=== PATIENT | male | born 1945 | race Caucasian/White ===

== ENCOUNTER 2016-07-10 07:48 | Outpatient (RCR) | payer MEDICARE ==
[2016-07-10 07:40] LABS: BILIRUBIN,URINE Negative (Negative); CLARITY,URINE Clear; GLUCOSE, URINE (UA) Negative (Negative); LEUKOCYTE ESTERASE, URINE Negative (Negative); UROBILINOGEN,URINE 0.2 mg/dL (0.2-1.0)
[2016-07-10 07:42] LABS: COLOR,URINE Dark Yellow
[2016-07-17 07:46] LABS: BILIRUBIN,URINE Negative (Negative); CLARITY,URINE Clear; COLOR,URINE Dark Yellow; GLUCOSE, URINE (UA) Negative (Negative); LEUKOCYTE ESTERASE, URINE Trace (Negative); PH,URINE 5.5 (5.0 - 8.0); UROBILINOGEN,URINE 0.2 mg/dL (0.2-1.0)
[2016-07-17 07:54] LABS: RBC,URINE None Seen /HPF; URINE CENTRIFUGED VOLUME 12 mL
[2016-07-24 07:51] LABS: BILIRUBIN,URINE Negative (Negative); CLARITY,URINE Clear; GLUCOSE, URINE (UA) Negative (Negative); LEUKOCYTE ESTERASE, URINE Trace (Negative); UROBILINOGEN,URINE 0.2 mg/dL (0.2-1.0)
[2016-07-24 08:16] LABS: COLOR,URINE Dark Yellow
[2016-07-24 08:31] LABS: RBC,URINE None Seen /HPF; URINE CENTRIFUGED VOLUME 10 mL
== END 2016-10-08 | disposition home or self-care (01) ==
LOC: LAB 07:48
PROVIDERS: ATTEND Internal Medicine Hematology & Oncology
DX: C67.8 Malignant neoplasm of overlapping sites of bladder (principal); R82.99 Other abnormal findings in urine
CPT/HCPCS: 81003; 81015; 87088

== ENCOUNTER → 2016-09-10 | Outpatient (CLI) | payer MEDICARE ==
[~2016-09-10] MED LIST: ACET-93 PO; AML5T PO; DXZS4T PO; FLT11013 INH; LSRT50T PO; MONT10TA21 PO; OMEP20TA PO; OMEP40CA36 PO; POTA10TA36 PO; SRTR100T PO
== END ==
LOC: LAB 08:53
PROVIDERS: ATTEND Urology
DX: Z85.51 Personal history of malignant neoplasm of bladder (principal)
CPT/HCPCS: 88112